=== PATIENT | male | born 1950 | race Caucasian/White ===

== ENCOUNTER → 2020-06-24 | Outpatient (CLI) | payer MEDICARE, OTHER ==
--- NOTE | 2020-06-24 13:56 | Diagnostic Imaging Report ---
PROCEDURE: US right lower extremity venous. TECHNIQUE: Multiple real-time grayscale images were obtained over the right lower extremity in various projections. Additional spectral analysis and color Doppler duplex images were also obtained. INDICATION: Right leg swelling. FINDINGS: There is no evidence of right lower extremity DVT. Right lower extremity deep venous system shows normal compressibility with normal response to augmentation and Valsalva. No fluid collection or mass is detected. IMPRESSION: No evidence of right lower extremity DVT. Dictated by: Dictated on workstation # [id number]
== END ==
LOC: RAD 12:30
PROVIDERS: ATTEND Student in an Organized Health Care Education/Training Program
DX: M79.89 Other specified soft tissue disorders (principal)

== ENCOUNTER → 2022-01-20 | Outpatient (CLI) | payer MEDICARE, OTHER ==
--- NOTE | 2022-01-20 13:30 | Diagnostic Imaging Report ---
PROCEDURE: MRI right joint lower extremity without contrast. TECHNIQUE: Multiplanar, multisequence non contrast-enhanced MRI of the right lower extremity was accomplished. INDICATION: Injury to the right knee, felt a pop, right knee pain and swelling. COMPARISON: None FINDINGS: There is motion artifact on multiple sequences resulting in suboptimal evaluation. There is is mild bone marrow edema posterior aspect of the medial tibial plateau, likely reactive. No fracture line is seen. There is a moderate right knee joint effusion. Articular cartilage in the patellofemoral compartment demonstrates moderate to marked thinning and surface irregularity with small full-thickness defects. Articular cartilage in the medial compartment demonstrates marked thinning and surface irregularity with small full-thickness defects. The cartilage in the lateral compartment demonstrates no full-thickness defects. The medial meniscus demonstrates complex tearing of the posterior horn, predominantly horizontal, extending toward the body. The lateral meniscus is intact. The anterior and posterior cruciate ligaments are intact. The medial collateral ligament is intact. The lateral collateral ligamentous complex is intact. The extensor mechanism is intact. The medial and lateral retinacula are intact. There is mild superficial and deep soft tissue edema about the knee. IMPRESSION: 1. Complex tearing of the medial meniscus. 2. Degenerative change and cartilage loss, most pronounced in the medial compartment. 3. Moderate right knee joint effusion. Dictated by: Dictated on workstation # [id number]
== END ==
LOC: RAD 12:30
PROVIDERS: ATTEND Student in an Organized Health Care Education/Training Program
DX: S83.241A Other tear of medial meniscus, current injury, right knee, initial encounter (principal); M17.11 Unilateral primary osteoarthritis, right knee
CPT/HCPCS: 73721